=== PATIENT | male | born 1930 | race Caucasian/White ===

== ENCOUNTER 2021-03-13 15:00 | Inpatient (IN) | payer BC, SELFPAY ==
[~2021-03-13] VITALS: Ht 165.1 cm; Wt 68.0 kg
[2021-03-13 15:54] VITALS: BP 110/70
[2021-03-13 17:00] LABS: HEMATOCRIT 33.5 % (36-52); HEMOGLOBIN 10.5 g/dL (12.0-18.0); MEAN CORPUSCULAR HEMOGLOBIN 30 pg (27-31); MEAN CORPUSCULAR HGB CONC 31 g/dL (33-37); MEAN CORPUSCULAR VOLUME 96.2 fL (80-94); PLATELET COUNT (AUTO) 251 K/uL (140-450); RED BLOOD CELL COUNT(AUTO) 3.49 MIL/uL (4.20-6.10); RED CELL DISTRIBUTION WIDTH 18.6 % (11.6-13.7)
--- NOTE | 2021-03-13 17:05 | NUR ---
89 yr old male biba c/o per family "progressive generalized weakness for past week". Per ems patient O2 sat was 86% and BP 80/60 on scene. A&O X2. No signs of discomfort or pain. Patient appears to be talking, remembers his full name but does not remember his date of . Given 250 mL of NS per ems, blood pressure brought up to 110/70. EMS gave 4L oxygen, brought O2 sats to 97%. 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 Tachypniec @ RR 44; SpO2 86% on room air, BP 164/141 L arm; 223/147 R arm. ERMD made aware of patient's presentation. Pt noted with distented, firm, round abd. Bed locked in lowest position, side rails x 2. MEDHX: FAMILY DENIES NKA per family
--- NOTE | 2021-03-13 17:06 | NUR ---
BIBA to bed 06
--- NOTE | 2021-03-13 17:15 | NUR ---
RAD at bedside
--- NOTE | 2021-03-13 17:15 | NUR ---
BP 223/147; SpO2 99%; RR [address] Rubens drake aware Addendum: 03/13/21 at 1728 by [facility] Left arm BP reading 162/141.
--- NOTE | 2021-03-13 17:20 | NUR ---
Dr. Art is evaluating patient at bedside
[2021-03-13 17:23] LABS: ANION GAP 20.3 (8-16); CARBON DIOXIDE 19.4 mmol/L (21-32); CHLORIDE 109 mmol/L (98-107); CREATININE 2.4 mg/dL (0.6-1.3); POTASSIUM 4.7 mmol/L (3.5-5.1); SODIUM SERUM 144 mmol/L (136-145)
[2021-03-13 17:28] LABS: ALBUMIN 2.5 g/dL (3.4-5.0); BILIRUBIN,DIRECT 0.3 mg/dL (0.0-0.3); TOTAL BILIRUBIN 1.1 mg/dL (0.0-1.0)
--- NOTE | 2021-03-13 17:30 | NUR ---
Dr. Art at bedside with Ultrasound
[2021-03-13 17:33] LABS: GLUCOSE 406 mg/dL (74-106); UREA NITROGEN, BLOOD 81 mg/dL (7-18)
[2021-03-13] MEDS ORDERED: MORPHINE SULFATE 4 MG/ML SYR ONE (17:35)
--- NOTE | 2021-03-13 17:35 | NUR ---
Verbal order received for Morphine 4mg IVP.
--- NOTE | 2021-03-13 17:38 | NUR ---
RT at bedside with lab rep for ABG draw
--- NOTE | 2021-03-13 17:50 | NUR ---
Patient transported to CT via gurney accompanied by 2 RN's and [employer].
[2021-03-13] MEDS ORDERED: LACTATED RINGERS 500 ML IV ONE (18:00)
[2021-03-13] MEDS ORDERED: MORPHINE SULFATE 4 MG/ML SYR IVP ONE (18:00)
[2021-03-13] MEDS ORDERED: INTUBATION KIT MC ONE ×2 (18:07→18:38)
[2021-03-13] MEDS ORDERED: VANCOMYCIN 1,000 MG in DEXTROSE 5% 250 ML IV ONE (18:10)
[2021-03-13] MEDS ORDERED: PIPERACILLIN/TAZOBACTAM 3.375 GM in DEXTROSE 5% 50 ML IV ONE (18:10)
--- NOTE | 2021-03-13 18:15 | NUR ---
RT and ERMD at bedside for intubation
--- NOTE | 2021-03-13 18:15 | NUR ---
Patient returned from CT and placed back onto sat act instructor. Pt noted with eyes fluttering, not responding. SpO2 78% on 4L by NC. Dr. Art made aware and RT paged.
--- NOTE | 2021-03-13 18:24 | NUR ---
IO established to LLE
[2021-03-13 18:26] LABS: WHITE BLOOD COUNT (AUTO) 29.9 K/uL (4.8-10.8)
--- NOTE | 2021-03-13 18:26 | NUR ---
Intubated 7.5 ET tube; 23 @ the teeth
--- NOTE | 2021-03-13 18:32 | NUR ---
Patient transported from bed 06 to bed 10
--- NOTE | 2021-03-13 18:36 | NUR ---
Pt extubated. Dr. Art made aware
--- NOTE | 2021-03-13 18:39 | NUR ---
Patient reintubated. ET 7.5; 25 @ the teeth
--- NOTE | 2021-03-13 18:39 | NUR ---
RESPONDED TO CALL TO ASSIST INTUBATION. PT WAS INTUBATED WITH 7.5mm ETT, 24cm @ TEETH. ON VENT SETTINGS AC RR16, VT450, PEEP5, FIO2 100%. VENT PLUGGED INTO RED OUTLET, HOB ELEVATED, AMBU BAG AT BEDSIDE, SUCTION SET UP. WILL CONTINUE TO MONITOR.
[2021-03-13] MEDS: NOREPINEPHRINE 4 MG in DEXTROSE 5% 250 ML IV ONE ×2 (18:50→19:06)
--- NOTE | 2021-03-13 19:01 | NUR ---
Lab at bedside
[2021-03-13 19:05] LABS: LYMPHOCYTES % (MANUAL) 7 % (20-46); METAMYELOCYTES % 3 % (0-0); MONOCYTES % (MANUAL) 1 % (5-12); MYELOCYTES % 1 % (0-0)
[2021-03-13 19:06] LABS: PROMYELOCYTES % 4 % (0-0)
[2021-03-13 19:11] VITALS: BP 81/22
--- NOTE | 2021-03-13 19:32 | NUR ---
Report and transfer of care endorsed to MARIELLA Rhodes
--- NOTE | 2021-03-13 19:39 | NUR ---
PT REPORT RECEIVED FROM MARIELLA LEVIN FOR CONTINUITY OF PT CARE AT THIS TIME.
[2021-03-13] MEDS ORDERED: ROCURONIUM 50 MG/5 ML VIAL IV ONE (19:40)
[2021-03-13] MEDS ORDERED: NOREPINEPHRINE 4 MG/4 ML VIAL IV ONE ×2 (19:40→23:38)
[2021-03-13] MEDS ORDERED: NOREPINEPHRINE 8 MG in DEXTROSE 5% 250 ML IV PRN (19:40)
[2021-03-13] MEDS ORDERED: SODIUM BICARBONATE 8.4% PFS 50 MEQ/50 ML SYR IVP ONE ×2 (19:40)
[2021-03-13] MEDS ORDERED: ETOMIDATE 20 MG/10 ML VIAL IVP ONE (19:40)
[2021-03-13] MEDS ORDERED: VASOPRESSIN 20 UNITS/ML VIAL ONE (19:40)
[2021-03-13] MEDS ORDERED: VASOPRESSIN 20 UNITS in NACL 0.9% 250 ML IV PRN (19:40)
--- NOTE | 2021-03-13 19:40 | NUR ---
JOSELUIS DAMON CALLED REQUESTING UPDATE [phone]
--- NOTE | 2021-03-13 19:50 | NUR ---
PT LAYING IN BED LOCKED IN LOWEST POSITION W X2 SIDERAILS UP FOR PT SAFETY. PT INTUBATED AND CONNECTED TO VENT PEEP 5 FiO2 100%. PT RUNNING LEVOPHED. PT HYPOTENSIVE, ERMD AWARE. PT CONNECTED TO MONITOR, WILL CONTINUE TO MONITOR.
[2021-03-13] MEDS ORDERED: NACL 0.9% 1,000 ML IV ONE ×2 (20:00)
--- NOTE | 2021-03-13 20:05 | NUR ---
PER MARIELLA LEVIN UNSUCCESSFUL AT STARTING INGRAM CATH ON PT EARLIER. # 12 FR Ingram catheter utilizing sterile technique AT THIS TIME. Immediate return of 400 ml YELLOW urine noted. Bedside drainage bag placed below level of bladder. Urine sample collected and sent to lab. Pt tolerated procedure. OG TUBE PLACED BY MARIELLA FELIPE AT THIS TIME.
--- NOTE | 2021-03-13 20:35 | NUR ---
SPOKE W PT DAUGHTER JOSELUIS MEADOWS NEXT OK KIN, PROVIDED W PT STATUS UPDATE.
[2021-03-13] MEDS ORDERED: PIPERACILLIN/TAZOBACTAM 3.375 GM VIAL IV ONE (20:37)
--- NOTE | 2021-03-13 20:48 | NUR ---
tammy sample collected and handed to bernice from lab.
[2021-03-13 21:00] LABS: APPEARANCE,URINE CLEAR (CLEAR); BILIRUBIN,URINE NEGATIVE (NEGATIVE); BLOOD, URINE 3+ (NEGATIVE); COLOR,URINE BROWN (YELLOW); LEUKOCYTE ESTERASE ,URINE NEGATIVE (NEGATIVE); NITRITE, URINE NEGATIVE (NEGATIVE); PH,URINE 5.5 (5.0-9.0); UGLUCOSE NEGATIVE (NEGATIVE)
[2021-03-13] MEDS ORDERED: EPINEPHrine 1 mg/mL 3 MG in DEXTROSE 5% 250 ML IV PRN (21:00)
[2021-03-13] MEDS ORDERED: EPINEPHrine 1 MG/ML AMP ONE (21:03)
--- NOTE | 2021-03-13 21:20 | NUR ---
ERMD ESCOBAR PLACED FEMORAL CENTRAL LINE PLACED AND OKAYED FOR USE AT THIS TIME.
[2021-03-13 21:21] LABS: RBC,URINE TOO NUMEROUS TO COUN /HPF (0-5); WBC,URINE 0-5 /HPF (0-5)
[2021-03-13 21:55] VITALS: BP 111/35
--- NOTE | 2021-03-13 21:55 | NUR ---
PT ON VENT W/ 7.5mm ETT 23 @ TEETH, SETTINGS AC RR16, VT450, PEEP5, FIO2 100% PT PRESENTS WITH NO SIGNS OF RESPIRATORY DISTRESS SATING 99%. BS REVEAL RHONCHI THROUGHOUT. DEEP TRACHEAL SX SCANT WHITE THIN SECRETIONS. HOB ELEVATED, VENT PLUGGED INTO RED OUTLET. WILL CONTINUE TO MONITOR.
--- NOTE | 2021-03-13 22:00 | NUR ---
PT MAXED ON EPI DRIP, LEVOPHED DRIP AND VASSOPRESSIN W BP 83/19. MADE AWARE.
[2021-03-13] MEDS ORDERED: VANCOMYCIN 1,000 MG VIAL ONE (22:04)
[2021-03-13] MEDS ORDERED: NACL 0.9% 1,000 ML IV SCH ×2 (22:30)
[2021-03-13] MEDS ORDERED: DOCUSATE SODIUM 100 MG GELCAP PO PRN (22:30)
[2021-03-13] MEDS ORDERED: MAGNESIUM OXIDE 400 MG TAB PO PRN (22:30)
[2021-03-13] MEDS ORDERED: ACETAMINOPHEN 325 MG TAB PO PRN (22:30)
[2021-03-13] MEDS ORDERED: PANTOPRAZOLE 40 MG INJ VIAL IVP SCH (22:30)
[2021-03-13] MEDS ORDERED: POTASSIUM CHLORIDE 10 MEQ TABER PO PRN (22:30)
[2021-03-13] MEDS ORDERED: MORPHINE SULFATE 2 MG/ML SYR IVP PRN (22:30)
[2021-03-13] MEDS ORDERED: DOPamine 400 MG/D5W PREMIX 250 ML IV PRN (22:30)
[2021-03-13] MEDS ORDERED: HYDROcodone/APAP 5/325 MG 1 TAB TAB PO PRN (22:30)
[2021-03-13] MEDS ORDERED: SODIUM PHOS / POTASSIUM PHOS 1 PKT PDR PO PRN (22:30)
[2021-03-13] MEDS ORDERED: ONDANSETRON 4 MG/2 ML VIAL IM/IVP PRN (22:30)
[2021-03-13] MEDS ORDERED: INSULIN LISPRO SLIDING SCALE 100 UNITS/ML VIAL SUBQ PRN (22:30)
[2021-03-13] MEDS ORDERED: DEXTROSE 50% 50 ML SYR IVP PRN (22:30)
[2021-03-13] MEDS ORDERED: VANCOMYCIN PER PHARMACY MC PRN (22:30)
[2021-03-13] MEDS ORDERED: HYDROCORTISONE NA SUCC 100 MG/2 ML VIAL IV SCH (22:40)
[2021-03-13] MEDS ORDERED: DOPamine 400 MG/D5W PREMIX 250 ML IV ONE (22:40)
--- NOTE | 2021-03-13 23:00 | NUR ---
PER ERMD VERIFIED PT OG TUBE PLACEMENT.
[2021-03-13 23:40] LABS: MAGNESIUM 2.8 mg/dL (1.8-2.4); PHOSPHORUS 6.3 mg/dL (2.5-4.9)
[2021-03-14 00:01] VITALS: BP 64/47
[2021-03-14] MEDS ORDERED: EPINEPHrine PFS 0.1 MG/ML SYR IVP ONE (00:03)
--- NOTE | 2021-03-14 00:10 | NUR ---
PT BP 59/26, HR 43,PT MAXED ON EPI DRIP, LEVOPHED DRIP, VASSOPRESSOR, AND DOPAMINE DEYA MADE AWARE. DEYA SPOKE W FAMILY AT BEDSIDE. PER DEYA PT FAMILY NO LONGER WANTS PT ON FULL CODE, PER DR. TERRY PT ON CHEMICAL CODE FOR ACLS DRUG ONLY NO CHEST COMPRESSIONS.
--- NOTE | 2021-03-14 00:15 | NUR ---
MD LÓPEZ MADE AWARE OF PT STATUS PT BP 59/26, HR 23,PT MAXED ON EPI DRIP, LEVOPHED DRIP, VASSOPRESSOR, AND DOPAMINE. ALSO UPDATED ON PT FAMILY NO LONGER WANTS PT ON FULL CODE, PER DR. TERRY PT ON CHEMICAL CODE FOR ACLS DRUG ONLY NO CHEST COMPRESSIONS.
--- NOTE | 2021-03-14 00:24 | NUR ---
PT EXP TIME OF CALLED BY AT THIS TIME. PT FAMILY AT BEDSIDE. MD BROWNING MADE AWARE.
--- NOTE | 2021-03-14 01:08 | NUR ---
CALLED BAG [facility]ER AT [phone], WILL CALL BACK.
--- NOTE | 2021-03-14 01:23 | NUR ---
UNK PT PRIMARY PHYSICIAN AT THIS TIME BY FAMILY. PER FAMILY WOULD LIKE PT TO GO TO [facility]. PT FAMILY ALSO REQUESTING PT HAVE AUTOPSY, AWAITING ON CLEARING SUPERVISOR CLEARANCE.
--- NOTE | 2021-03-14 01:23 | NUR ---
SPOKE W SIENNA LEE FROM [facility]. PER SIENNA WON'T BE MOVING FORWARD W PT CASE AND PT IS RELEASED. CC #[id number].
--- NOTE | 2021-03-14 01:55 | NUR ---
SPOKE W DEPUTY NEWBERRY, YAIR NEWBERRY BODY HAS BEEN CLEARED AND IS ABLE TO BE MOVED. REPORTED TO DEPUTY NEWBERRY PT FAMILY WISHES FOR AUTOPSY, YAIR NEWBERRY PT IS CLEARED AND WILL NOT BE A CORONERS CASE AND PT FAMILY CAN PAY/ARRANGE FOR AUTOPSY ON OWN.
[2021-03-14] MEDS ORDERED: HYDROCORTISONE NA SUCC 100 MG/2 ML VIAL IV SCH (05:00)
[2021-03-14] MEDS ORDERED: PIPERACILLIN/TAZOBACTAM 2.25 GM in DEXTROSE 5% 50 ML IV SCH (06:00)
--- NOTE | 2021-03-14 06:54 | NUR ---
ATTEMPTED TO CALL PT FAMILY FOR UPDATE ON BODY CLEARANCE BY CORONERS CASE. NO ANSWER AT THIS TIME.
[2021-03-14] MEDS ORDERED: BLOOD GLUCOSE MONITORING 1 DEV DEV FS SCH (07:30)
== END 2021-03-14 00:24 | DRG 720 ==
LOC: MED 15:00 → MTU 21:28
PROVIDERS: ADMIT Hospitalist; ATTEND Hospitalist
PROC: 06HY33Z Insertion of Infusion Device into Lower Vein, Percutaneous Approach (ICD-10-PCS; principal; 2021-03-13)
PROC: 5A1935Z Respiratory Ventilation, Less than 24 Consecutive Hours (ICD-10-PCS; 2021-03-13)
PROC: 0BH17EZ Insertion of Endotracheal Airway into Trachea, Via Natural or Artificial Opening (ICD-10-PCS; 2021-03-13)
DX: A41.9 Sepsis, unspecified organism (principal); J96.01 Acute respiratory failure with hypoxia; N17.0 Acute kidney failure with tubular necrosis; I46.9 Cardiac arrest, cause unspecified; J69.0 Pneumonitis due to inhalation of food and vomit; K56.609 Unspecified intestinal obstruction, unspecified as to partial versus complete obstruction; R65.21 Severe sepsis with septic shock; E43 Unspecified severe protein-calorie malnutrition; E87.2 Acidosis; Z20.822 Contact with and (suspected) exposure to COVID-19; E83.39 Other disorders of phosphorus metabolism; K56.0 Paralytic ileus; F03.90 Unspecified dementia, unspecified severity, without behavioral disturbance, psychotic disturbance, mood disturbance, and anxiety; D64.9 Anemia, unspecified; E80.6 Other disorders of bilirubin metabolism; J44.0 Chronic obstructive pulmonary disease with (acute) lower respiratory infection; N13.6 Pyonephrosis; K44.9 Diaphragmatic hernia without obstruction or gangrene; E83.41 Hypermagnesemia; Z68.25 Body mass index [BMI] 25.0-25.9, adult
CPT/HCPCS: 36415; 71045; 80048; 80076; 81001; 82009; 82803; 83036; 83605; 83690; 83735; 83880; 84100; 84484; 85025; 87040; 93005; 96361; 96365; 96367; 96375; 99291; J0171; J1720; J1815; J2270; J2543; J3370; J3490; J7060; Q0092